=== PATIENT | male | born 1945 | race Native Hawaiian/Other Pacific Islander ===

== ENCOUNTER 2018-05-26 13:36 | Outpatient (CLI) | payer OTHER | END 2018-05-26 22:20 | disposition home or self-care (01) | LOC: LAB 13:36 | DX: I10 Essential (primary) hypertension (principal); I51.9 Heart disease, unspecified; Z79.01 Long term (current) use of anticoagulants; I82.409 Acute embolism and thrombosis of unspecified deep veins of unspecified lower extremity | CPT/HCPCS: 85610 ==

== ENCOUNTER 2018-06-25 12:43 | Outpatient (CLI) | payer OTHER | END 2018-06-25 23:43 | disposition home or self-care (01) | LOC: LAB 12:43 | DX: I51.9 Heart disease, unspecified (principal); Z79.01 Long term (current) use of anticoagulants; I10 Essential (primary) hypertension | CPT/HCPCS: 85610 ==